=== PATIENT | male | born 1970 | race Caucasian/White ===

== ENCOUNTER → 2024-08-10 09:41 | Outpatient (REF) | payer BC, SELFPAY ==
[2024-08-10 10:32] LABS: % Basophils 1.3 % (0-2); % Eosinophils 3.2 % (0-6); % Lymphocytes 30.8 % (20.5-51.1); % Monocytes 10.1 % (1.7-9.3); % Neutrophils 54.6 % (42.2-75.2); Absolute Basophils 0.1 10^3/uL (0-0.2); Absolute Eosinophils 0.2 10^3/uL (0-0.7); Absolute Lymphocytes 1.4 10^3/uL (1.2-3.4); Absolute Monocytes 0.5 10^3/uL (0.1-0.6); Absolute Neutrophils 2.6 10^3/uL (1.4-6.5); Hematocrit 46.8 % (39.0-52.0); Mean Corp Hgb Conc. 34.2 g/dL (33.0-37.0); Mean Corpuscular Hgb 32.1 pg (27.0-31.0); Mean Platelet Volume 11.4 fL (7.4-10.4); Nucleated Red Blood Cells % 0 % (-); Platelet Count 179 10^3/uL (130-400); Red Blood Cell Count 4.98 10^6/uL (4.70-6.10); Red Cell Dist. Width 12.3 % (11.5-14.5); White Blood Cell Count 4.7 10^3/uL (4.8-10.8)
[2024-08-10 11:02] LABS: ALT (SGPT) 53 U/L (0-50); AST (SGOT) 53 U/L (17-59); Albumin 4.4 g/dl (3.5-5.0); Alkaline Phosphatase 54 U/L (38-126); Blood Urea Nitrogen 32 mg/dl (9-20); Calcium 9.4 mg/dl (8.4-10.2); Carbon Dioxide 37 mmol/L (22-30); Chloride 99 mmol/L (98-107); Glucose 91 mg/dl (70-99); HDL Cholesterol 47 mg/dl; LDL Cholesterol, Calculated 69 mg/dl; Potassium 5.3 mmol/L (3.5-5.1); Sodium 139 mmol/L (135-145); Total Bilirubin 1.7 mg/dl (0.2-1.3); Total Cholesterol 128 mg/dl (50-199); Total Protein 7.2 g/dl (6.3-8.2); Triglyceride 63 mg/dl (10-149); Very Low Density Lipoprotein 12 mg/dl (0-30); eGFR > 60.00
[2024-08-10 11:33] LABS: TSH Reflex To Free T4 1.96 uIU/ml (0.47-4.68)
== END ==
LOC: RCS 09:41
PROVIDERS: ATTENDING PHYSICIAN Internal Medicine Cardiovascular Disease; FAMILY PHYSICIAN Family Medicine
DX: I25.10 Atherosclerotic heart disease of native coronary artery without angina pectoris (principal); R07.9 Chest pain, unspecified; I10 Essential (primary) hypertension; E78.2 Mixed hyperlipidemia; I82.532 Chronic embolism and thrombosis of left popliteal vein; Z79.01 Long term (current) use of anticoagulants; E34.9 Endocrine disorder, unspecified
CPT/HCPCS: 36415; 80053; 80061; 84443; 85025; 93306

== ENCOUNTER → 2024-08-15 11:18 | Outpatient (REF) | payer BC, SELFPAY | LOC: HWRCS 11:18 | PROVIDERS: ATTENDING PHYSICIAN Internal Medicine Cardiovascular Disease; FAMILY PHYSICIAN Family Medicine | DX: I25.10 Atherosclerotic heart disease of native coronary artery without angina pectoris (principal) | CPT/HCPCS: 78452; 93017; A9500 ==